=== PATIENT | female | born 1960 | race Caucasian/White ===

== ENCOUNTER 2019-08-08 12:10 | Day surgery (SDC) | payer MEDICAID ==
[~2019-08-08] VITALS: Ht 154.9 cm; Wt 65.0 kg
[~2019-08-08 12:10] MED LIST: SODIUM CHLORIDE 0.9% 1,000 ML IV ONE; SODIUM CHLORIDE 0.9% 1,000 ML ONE
[2019-08-08] MEDS ORDERED: LIDOCAINE/PF 2% 5 ML VIAL INJ ONE (12:11)
[2019-08-08] MEDS ORDERED: GLEC1TAB PO (12:49)
[2019-08-08] MEDS ORDERED: ATOR10TA84 PO (12:49)
[2019-08-08] MEDS ORDERED: INDO-16 PO (12:49)
[2019-08-08] MEDS ORDERED: METF-960 PO (12:49)
[2019-08-08] MEDS ORDERED: LISI-661 PO (12:49)
== END 2019-08-08 15:10 | disposition home or self-care (01) ==
LOC: SURGERY 12:10
PROVIDERS: ATTEND Student in an Organized Health Care Education/Training Program
DX: K62.5 Hemorrhage of anus and rectum (principal); D12.5 Benign neoplasm of sigmoid colon; K57.30 Diverticulosis of large intestine without perforation or abscess without bleeding; K64.8 Other hemorrhoids; K76.89 Other specified diseases of liver; K29.50 Unspecified chronic gastritis without bleeding; K22.8 Other specified diseases of esophagus; I10 Essential (primary) hypertension
CPT/HCPCS: 45380; 45381; 43239; 88305; 88312; 88313; C1769; J3490; J7030